=== PATIENT | female | born 1980 | race Caucasian/White ===

== ENCOUNTER 2023-05-30 18:55 | Emergency (ER) | payer SELFPAY ==
[2023-05-30 18:57] VITALS: BP 135/77
--- NOTE | 2023-05-30 19:54 | ED.GENMED ---
History of Present Illness
General
Chief Complaint: Dental Problem
Source: patient
Exam Limitations: none
Time Seen by Provider: 05/30/23 19:02
Nursing documentation reviewed up to this point in time: agreed with
Travel History
Have you had any contact with someone who has COVID-19?: No
Do you have any symptoms of coronavirus? Fever > 100 degrees, chills, cough, shortness of breath, sore throat, loss of taste or smell, muscle aches, or headache?: No
History of Present Illness
History of Present Illness:
43-year-old female presents to the emergency room for evaluation of dental pain. Patient reports that she was eating dinner tonight bit down on something hard and fractured her right lower molar. Has had intense pain since. She scheduled an
emergency appointment with her dentist tomorrow at 7 AM but she says she cannot get relief from pain despite using Tylenol and Motrin so she came to the emergency room for assessment.
Past History
Past History
ED Past Medical History: Psychiatric (anxiety, bipolar disorder, depression, substance abuse) and Other (History of swallowing foreign objects )
ED Past Surgical History: Gynecological
Social History
Tobacco: Former smoker
Alcohol: Occasional
Drug: Former user (OxyContin abuser and Suboxone abuser )
Personal: Single
Living: [facility]
Review of Systems
Review of Systems
All Other Systems: ROS reviewed and negative except as documented in HPI and ROS
EENT: Reports other (Dental pain)
Phy Exam
Physical Exam
Physical Exam:
General: Well appearing and non-toxic
HEENT: protecting airway
Mouth: Generally poor dentition; patient has significant oblique fracture of the right lower molar tooth 31 with exposed dentin and pulp (Vizcaino 3)
Neck: appears supple
CV: No evidence of cyanosis
Resp: No accessory muscle use
Abd: Non-distended
Extremities: No deformities
Neuro: Alert
Psych: Normal affect
Skin: Intact
Scores
Heart Failure Risk
Heart Failure Risk Score: Not Applicable
Heart Score for Chest Pain Patients
STEMI patient?: Not applicable
Withdrawal Assessment of Alcohol
Withdrawal Assessment Completed?: Not applicable
Course
Orders/Labs/Results
Orders:
Orders
05/30/23 19:39
Bupivacaine HCl/Epinephrine [Marcaine 0.5% W/Epi [facility] [place]] 1 cartridge .ROUTE .STK-MED ONE
05/30/23 19:40
Bupivacaine Pf 0.5% [Sensorcaine 0.5% Single Dose] 30 ml .ROUTE .STK-MED ONE
05/30/23 19:53
Clindamycin HCl [Cleocin] 450 mg PO NOW STA
Vital Signs
Initial and Last Documented VS:
Initial Vital Signs
Temp Pulse Resp BP Pulse Ox
36.8 C 97 18 135/77 98
05/30/23 18:57 05/30/23 18:57 05/30/23 18:57 05/30/23 18:57 05/30/23 18:57
Last Documented Vital Signs
Temp Pulse Resp BP Pulse Ox
36.8 C 97 18 135/77 98
05/30/23 18:57 05/30/23 18:57 05/30/23 18:57 05/30/23 18:57 05/30/23 18:57
Procedures
Dentalgia
Dental Block: In. Stoney. Block
Tooth Number: 31
Pt tolerated procedure well w/ no immediate adverse effects?: Yes
MDM/Problems Addressed
Differential Diagnosis Includes:
Dental fracture
MDM/Problems Addressed:
43-year-old female presents for severe dental pain after fracturing her right lower molar while eating tonight. She has Vizcaino 3 fracture with exposed pulp and dentin. Performed an inferior alveolar dental block with good pain control. Applied
calcium hydroxide to the exposed surface of the tooth. Will start on clindamycin. She has an emergency dental appointment scheduled for tomorrow at 7 AM. Discharged to follow-up with dentist tomorrow in the morning.
*Pulse Oximetry
Patient hypoxic: no
*Critical Care Note
Total Time (30-74mins, 75-104mins- exclusive of procedures): Not Applicable
Data Reviewed
Source: patient
ED Attending Note
-
Portions of this chart may have been created with voice recognition software.� Occasional wrong word or��sound alike� substitutions may have occurred due to the inherent limitations of voice recognition software.
Discharge Plan
Departure
Patient Disposition: Home (Routine Discharge)
Date of Disposition: 05/30/23
Time of Disposition: 19:53
Patient with high blood pressure during this ER visit?: No
Discharge Problem:
Fracture of tooth
Instructions: Fractured Tooth (DC)
Prescriptions:
New
clindamycin HCl 150 mg capsule
450 mg PO TID 7 Days Qty: 63 0RF
No Action
sertraline 100 MG tablet
100 mg PO DAILY
trazodone 100 MG tablet
100 mg PO HS
hydroxyzine pamoate [Vistaril] 50 MG capsule
50 mg PO Q4H PRN (Reason: jittery)
mirtazapine 30 MG tablet
30 mg PO HS
Referrals:
Steve Sauceda MD [Family Provider] - Call in 1-3 days for appt
Activity Restrictions/Additional Instructions:
YOU MUST FOLLOW UP WITH YOUR DENTIST TOMORROW MORNING!
Thank you for visiting the Emergency Department at [facility].
1. Please schedule a follow up appointment as directed. Call first thing tomorrow morning to make an appointment.
2. If indicated, please take your medications as instructed and indicated on discharge paperwork.
3. If any of your symptoms do not improve, or persist, or become more severe within 6-12 hours, please return to the emergency department for further care.
4. Please return to the emergency department if you develop a headache, neck pain/stiffness, fever greater than 100.4F, chest pain, shortness of breath, persistent nausea, vomiting, slurred speech, difficulty walking, numbness/tingling, weakness,
signs of infection or any other symptoms that are worrisome to you.
Please call [phone] if you have any questions.
Interventions
Interventions:
*Risk Screen - Suicide Last Done: 05/30/23 18:57
*General Assessment Last Done: 05/30/23 18:57
*Neglect/Abuse Screening Last Done: 05/30/23 18:57
*ED COVID-19 Vaccine History Last Done: 05/30/23 18:59
[2023-05-30] MEDS: CLEOCIN 450 MG PO (20:01)
== END 2023-05-30 20:06 | disposition home or self-care (01) ==
LOC: EMR 18:55
PROVIDERS: EMERGENCY PHYSICIAN Emergency Medicine; FAMILY PHYSICIAN Family Medicine
DX: S02.5XXA Fracture of tooth (traumatic), initial encounter for closed fracture (principal); X58.XXXA Exposure to other specified factors, initial encounter; Z87.891 Personal history of nicotine dependence
CPT/HCPCS: 99284; 64400

== ENCOUNTER 2024-10-27 21:23 | Emergency (ER) | payer OTHER, SELFPAY ==
[2024-10-27 21:25] VITALS: BP 144/90
[2024-10-28 00:03] VITALS: BP 130/76
--- NOTE | 2024-10-28 01:44 | ED.GENMED ---
History of Present Illness
General
Chief Complaint: Extremity Pain (non-traumatic)
Source: patient
Exam Limitations: none
Time Seen by Provider: 10/28/24 01:19
History of Present Illness
History of Present Illness:
Nontraumatic pain and swelling to the left lower leg x 2 days. No fever chills no rash no other joint issues. No trauma.
Past History
Past History
ED Past Medical History: Psychiatric (anxiety, bipolar disorder, depression, substance abuse) and Other (History of swallowing foreign objects )
ED Past Surgical History: Gynecological
Social History
Tobacco: Former smoker
Alcohol: Occasional
Drug: Former user (OxyContin abuser and Suboxone abuser )
Personal: Single
Living: [facility]
Phy Exam
Physical Exam
Physical Exam:
GENERAL: Alert and oriented in no apparent distress
CARDIAC: Regular rate and rhythm
LUNGS: No respiratory distress
NEUROLOGICAL: Alert and oriented , grossly non-focal
SKIN: Warm and dry, no ECM rash or other rash
MUSCULOSKELETAL: Mild swelling of the distal left anterior tibia with mild swelling of the ankle. Very minimal warmth. No erythema. No joint pain with joint motion. All other joints negative
PSYCH: Normal and appropriate interaction.
Course
Orders/Labs/Results
Orders:
Orders
10/27/24 21:33
US Legs, Left [US Periph Venous LOWER Ext LT] Urgent
Comment:
Reason For Exam: L leg swelling
10/28/24 00:36
Tib/Fib, Left 2 View [CR Leg Tibia/fibula Left 2 Vw] Urgent
Comment:
Reason For Exam: pain to anterior lower leg. Tender with palpation
10/28/24 01:28
Anjel Wrap Left-Treatment ONCE
Crutches-Treatment ONCE
Ketorolac [Toradol] 30 mg IM NOW STA
10/28/24 01:37
Lyme Progressive Urgent
10/28/24 01:47
Ibuprofen [Motrin] 600 mg .ROUTE .STK-MED ONE
10/28/24 01:51
Ibuprofen [Motrin] 600 mg PO NOW STA
Vital Signs
Initial and Last Documented VS:
Initial Vital Signs
Temp Pulse Resp BP Pulse Ox
98.3 F 81 18 144/90 100
10/27/24 21:25 10/27/24 21:25 10/27/24 21:25 10/27/24 21:25 10/27/24 21:25
Last Documented Vital Signs
Temp Pulse Resp BP Pulse Ox
98.1 F 68 16 130/76 100
10/28/24 00:03 10/28/24 00:03 10/28/24 00:03 10/28/24 00:03 10/28/24 01:47
MDM/Problems Addressed
Differential Diagnosis Includes:
Nontraumatic swelling inflammation distal left leg to the ankle. Possibly minor trauma the patient did not realize. Possible mild monoarticular arthritis as an gout or pseudogout. Doubt Lyme disease but titer sent. Very low suspicion for septic
arthritis. Anti-inflammatories decrease weightbearing and follow-up
*Radiology
Radiology exam reviewed: preliminary read by ED provider (Negative x-ray) and radiology read reviewed (Negative ultrasound)
*Pulse Oximetry
SaO2: 100
Oxygen Mode of Delivery: Room air
Patient hypoxic: no
*Critical Care Note
Total Time (30-74mins, 75-104mins- exclusive of procedures): Not Applicable
ED Attending Note
-
Portions of this chart may have been created with voice recognition software.� Occasional wrong word or��sound alike� substitutions may have occurred due to the inherent limitations of voice recognition software.
Discharge Plan
Departure
Patient Disposition: Home (Routine Discharge)
Date of Disposition: 10/28/24
Time of Disposition: 01:46
Patient with high blood pressure during this ER visit?: Yes
Discharge Problem:
Nontraumatic inflammation left ankle
Instructions: Muscle and Bone Pain (DC), BLOOD PRESSURE
Prescriptions:
No Action
sertraline 100 MG tablet
100 mg PO DAILY
trazodone 100 MG tablet
100 mg PO HS
hydroxyzine pamoate [Vistaril] 50 MG capsule
50 mg PO Q4H PRN (Reason: jittery)
mirtazapine 30 MG tablet
30 mg PO HS
clindamycin HCl 150 mg capsule
450 mg PO TID 7 Days Qty: 63 0RF
Referrals:
Steve Sauceda MD [Family Provider, Family Practice] - Follow up in 2-3 days
Activity Restrictions/Additional Instructions:
Stay off the ankle and rest at the next few days
Continue Advil or Motrin. You can also add Tylenol
Lyme titer should be back in 2 to 3 days
Follow-up closely with your primary physician
Return sooner with increased swelling redness other joint involvement rash fever or any other concerning symptoms
Interventions
Interventions:
*Risk Screen - Suicide Last Done: 10/27/24 21:25
*General Assessment Last Done: 10/27/24 21:25
*Neglect/Abuse Screening Last Done: 10/27/24 21:25
*ED- Fall Risk Assessment Last Done: 10/27/24 21:25
*ED COVID-19 Vaccine History Last Done: 10/28/24 00:05
ED-Skin Assessment Last Done: 10/28/24 00:05
ED-Peripheral Vascular Assessment Last Done: 10/28/24 00:05
ED-Musculoskeletal Assessment Last Done: 10/28/24 00:05
Discharge Date and Time
Print Language: [id number]
[2024-10-28] MEDS: MOTRIN 600 MG PO (01:51)
== END 2024-10-28 02:12 | disposition home or self-care (01) ==
LOC: EMR 21:23
PROVIDERS: EMERGENCY PHYSICIAN Emergency Medicine; FAMILY PHYSICIAN Family Medicine
DX: R22.42 Localized swelling, mass and lump, left lower limb (principal); M79.662 Pain in left lower leg; Z87.891 Personal history of nicotine dependence
CPT/HCPCS: 99284; 73590; 86618; 93971